=== PATIENT | female | born 1985 | race Caucasian/White ===

== ENCOUNTER 2018-11-11 16:59 | Emergency (ER) | payer MEDICAID ==
[~2018-11-11] VITALS: Ht 152.4 cm; Wt 48.0 kg
[2018-11-11 17:06] VITALS: Ht 152.4 cm; Wt 48.0 kg
[2018-11-11] MEDS ORDERED: KETOROLAC 30 MG INJ IM STA (17:51)
[2018-11-11] MEDS ORDERED: NAPR-985 PO (18:47)
[2018-11-11 18:56] VITALS: BP 123/56; PULSE 59; RESP 16
--- NOTE | 2018-11-11 20:36 | ERD ---
ER Documentation Chief Complaint Chief Complaint lt arm pain since last night HPI 33-year-old female presented to the emergency department complaining of left sided neck pain and left forearm pain intermittently since last night. 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 Currently, the pain is localized to the left forearm region. She denies any falls or other traumas. She denies any chest pain, shortness of breath, or other symptoms at this time. Symptoms are currently described as moderate to severe. Patient took Tylenol at home without significant relief. ROS All systems reviewed and are negative except as per history of present illness. Medications Home Meds Active Scripts Naproxen* (Naprosyn*) 500 Mg Tablet, 500 MG PO BID PRN for PAIN AND/OR INFLAMMATION, #30 TAB Prov:ERON DUNBAR PA-C 11/11/18 Allergies Allergies: Coded Allergies: No Known Allergy (Unverified , 11/11/18) PMhx/Soc Medical and Surgical Hx: pt denies Surgical Hx Hx Miscellaneous Medical Probl: Yes (Psoriasis) Hx Alcohol Use: No Hx Substance Use: No Hx Tobacco Use: No Smoking Status: Never smoker FmHx Family History: No diabetes Physical Exam Vitals Vital Signs Date Temp Pulse Resp B/P (MAP) Pulse Ox O2 O2 Flow FiO2 Time Delivery Rate 11/11/18 59 16 123/56 99 Room Air 18:56 (78) 11/11/18 98.1 72 18 126/70 100 17:06 (88) Physical Exam Const: No acute distress Head: Atraumatic Eyes: Normal Conjunctiva ENT: Normal External Ears, Nose and Mouth. Neck: Full range of motion. No meningismus. Resp: Clear to auscultation bilaterally Cardio: Regular rate and rhythm, no murmurs Skin: No petechiae or rashes Ext: No cyanosis, or edema. Subjective tenderness to the left forearm. Full range of motion of the left wrist, left elbow, left shoulder. No erythema. No warmth. No edema. No obvious deformity. No open fracture. Neur: Awake and alert Psych: Normal Mood and Affect Results 24 hrs Laboratory Tests Test 11/11/18 18:11 POC Beta HCG, Qualitative NEGATIVE Current Medications Medications Dose Sig/Asael Start Time Status Last (Trade) Ordered Route PRN Stop Time Admin Dose Reason Admin Ketorolac 30 mg ONCE STAT 11/11/18 DC 11/11/18 Tromethamine IM 17:51 18:22 (Toradol) 11/11/18 17:53 [place] [id number] Radiology Main Line: [phone] DIAGNOSTIC IMAGING REPORT Patient: JASON VILLEGAS : 1985 Age: 33 Sex: F MR #: [id number] DOS: 11/11/18 0000 Ordering MD: ERON DUNBAR PA-C Location: [facility] Room/Bed: PROCEDURE: US upper extremity Venous. CLINICAL INDICATION: Left arm edema , pain TECHNIQUE: Multiple sonographic images of the left upper extremity venous system was obtained utilizing grayscale, color-flow, compressive sonography and doppler imaging with augmentation. The images were reviewed on a PACS workstation. COMPARISON: None. FINDINGS: There is normal compressibility and flow within the left internal jugular vein, subclavian vein, axillary vein, brachial, basilic, cephalic , radial and ulnar veins. RPTAT: AA IMPRESSION: No sonographic evidence for venous thrombosis. .Wing Deleon MD, MD Date Time Electronically viewed and signed by .Wing Deleon MD, MD on 11/11/2018 18:38 .S/ CC: ERON DUNABR PA-C [id number] [place] [address] Radiology Main Line: [phone] DIAGNOSTIC IMAGING REPORT Patient: JASON VILLEGAS : 1985 Age: 33 Sex: F MR #: [id number] DOS: 11/11/18 0000 Ordering MD: ERON DUNBAR PA-C Location: [facility] Room/Bed: PROCEDURE: XR Forearm. CLINICAL INDICATION: pain TECHNIQUE: AP and lateral views of the left forearm were obtained. COMPARISON: No prior studies are available for comparison. FINDINGS: There is normal mineralization and alignment. No acute fracture or osseous lesion is identified. The soft tissues are unremarkable. RPTAT: AA IMPRESSION: Unremarkable left forearm. .Wing Deleon MD, Date Time Electronically viewed and signed by .Wing Deleon MD, on 11/11/2018 18:39 .S/ CC: ERON DUNBAR PA-C [id number] Procedures/MDM 33-year-old female presents to the emergency department with signs and symptoms most consistent with sprain versus strain of the left upper extremity. Patient was administered Toradol in the department with significant improvement of her symptoms. She was denying shortness of breath, chest pain, jaw pain throughout her ED course. Low suspicion for cardiac etiology. Low suspicion for DVT, fracture, compartment syndrome, or other emergent conditions. X-ray negative for fracture and interpreted by the radiologist. Venous ultrasound of the left upper extremity was negative for DVT and interpreted by the radiologist. Patient is stable and appropriate for discharge and further outpatient management with a prescription for naproxen. She was advised to have 24 to 48- hour follow-up with her primary care physician and return to the department immediately for any new or worsening or concerning symptoms. Patient was in agreement with the diagnosis, plan, need for follow-up, return precautions. EKG: Interpreted by ED physician. Rate/Rhythm: Normal Sinus Rhythm with a rate of 64 bpm. QRS, ST, T-waves: No changes consistent w/ acute ischemia Impression: No evidence of ischemia or arrhythmia Departure Diagnosis: Primary Impression: Left arm pain Condition: Fair Patient Instructions: Contusion, Upper Extremity [facility] Usted se briggs hecho un examen mdico de control que le indica que no est en hi condicin que requiera tratamiento urgente en el Departamento de Emergencia. Un estudio ms profundo y el tratamiento de pierre condicin pueden esperar sin ningn riesgo hasta que usted sea atendida/o en el consultorio de pierre mdico o hi clnica. Es responsabilidad suya arreglar hi eduarda para el seguimiento del mayelin. MANEJO DE CONDICIONES NO URGENTES EN EL FUTURO 1) Si usted tiene un mdico de atencin primaria: Usted debera llamar a pierre mdico de atencin primaria antes de venir al departamento de emergencia. Despus de las horas de consultorio, pierre doctor o pierre asociado/a est disponible por telfono. El mdico o enfermero de jasmine en el servicio telefnico puede asesorarle por marguerite medio para atender el problema, o mayelin contrario se puede programar hi eduarda. 2) Si usted no tiene un mdico de atencin primaria: Llame al mdico o clnica de referencia que aparece abajo rainer las horas de consultorio para hacer hi eduarda para que le vean. CLINICAS: [place] [phone] [facility] [phone] [facility]. [facility] [phone] [address] [facility] [place] [id number] [phone] [facility] [place] [id number] [phone] [facility]. [phone] [address] Additional Instructions: Llame al doctor MAANA y kim hi EDUARDA PARA DENTRO DE 1-2 BAE.Dgale a la secretaria que nosotros le instruimos hacer esta eduarda.Avise o llame si pierre condicin se empeora antes de la eduarda. Regresa aqui si peor o no mejor. ERON DUNBAR PA-C Nov 11, 2018 20:36
== END 2018-11-11 18:58 | disposition home or self-care (01) ==
LOC: FTE 16:59
DX: M79.602 Pain in left arm (principal)
CPT/HCPCS: 73090; 81025; 93005; 93971; 96372; J1885; Z7502

== ENCOUNTER 2019-01-13 13:32 | Emergency (ER) | payer MEDICAID, OTHER ==
[~2019-01-13] VITALS: Ht 160 cm; Wt 48.3 kg
[~2019-01-13 13:32] MED LIST: NAPR-985 PO
[2019-01-13 13:37] VITALS: BP 116/77; PULSE 68; RESP 22; Ht 160 cm; Wt 48.3 kg
== END 2019-01-13 13:50 | disposition home or self-care (01) ==
LOC: E/R 13:32
DX: M79.602 Pain in left arm (principal)
CPT/HCPCS: 99282